=== PATIENT | female | born 1990 | race Hispanic/Latino ===

== ENCOUNTER 2021-04-03 15:23 | Emergency (ER) | payer SELFPAY ==
[2021-04-03 15:50] LABS: Urine Blood Negative (Negative); Urine Glucose Negative (Negative); Urine Protein Negative (Negative); Urine Specific Gravity 1.025 (1.005-1.030)
[2021-04-03 16:27] LABS: Absolute Lymphocytes (CBC) 2.3 K/uL (0.7-4.9); Basophils % 0.6 % (0-1.3); Hematocrit 39.5 % (36.0-45.0); Lymphocytes % 30.2 % (15.3-44.8); MPV 7.7 fL (7.6-11.3); RBC Red Blood Cell Count 4.32 M/uL (3.86-4.86)
[2021-04-03 16:32] LABS: Albumin 3.8 g/dL (3.4-5.0); Bilirubin Direct 0.1 mg/dL (0-0.2); Bilirubin Total 0.4 mg/dL (0.2-1.0); Protein, Total 7.1 g/dL (6.4-8.2)
[2021-04-03] MEDS ORDERED: ONDANSETRON 4 MG/2 ML VIAL ONE (16:42)
[2021-04-03] MEDS ORDERED: MORPHINE 4 MG/ML SYR ONE (16:42)
[2021-04-03] MEDS ORDERED: NA CHLORIDE 0.9% 1,000 ML ONE (16:43)
[2021-04-03 17:32] LABS: Urine Specific Gravity/Preg 1.025 (1.005-1.030)
--- NOTE | 2021-04-03 17:43 | RAD REPORT ---
EXAM DESCRIPTION: CT - Abdomen Pelvis W Contrast - 04/03/2021 5:21 pm CLINICAL HISTORY: ABD PAIN COMPARISON: CT ABD PELVIS W CONTRAST dated 07/15/2015 TECHNIQUE: Biphasic, helical CT imaging of the abdomen and pelvis was performed following 100 ml non -ionic IV contrast. No oral contrast administered. All CT scans are performed using dose optimization technique as appropriate and may include automated exposure control or mA/KV adjustment according to patient size. FINDINGS: No suspicious findings in the lung bases. The liver, spleen, and pancreas show no suspicious findings. Cholecystectomy clips are present. No ab normal biliary tree dilatation. Symmetric renal function is seen with no hydronephrosis or suspicious renal mass. No pyelonephritis o r acute parenchymal process. No bladder abnormalities. No adrenal abnormalities. Uterus and ovaries s how no suspicious findings. Food and fluid fill but do not dilate the stomach. No gastric outlet obstruction or acute gastric fin ding suspected. No dilated bowel loops or bowel wall thickening. No appendicitis findings. No acute G I process is identifiable. No free air, free fluid or inflammatory stranding. No hernia, mass or bul ky lymphadenopathy. There is extensive stranding in the subcutaneous fatty tissues in the bilateral g luteal region with numerous small areas of soft tissue nodularity. 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 This needs correlation with history. No suspicious bony findings. IMPRESSION: Contrast enhanced CT abdomen and pelvis showing no acute or emergent finding. Nonacute findings detailed in the body of the report.
[2021-04-03] MEDS ORDERED: KETOROLAC 30 MG/ML INJ ONE (18:02)
--- NOTE | 2021-04-03 18:46 | ER ---
Nurse's Notes [facility] Name: Nelda Beckett Age: 30 yrs Sex: Female : 1990 Arrival Date: 04/03/2021 Time: 15:25 Bed 18 Private MD: Diagnosis: Abdominal tenderness;Pelvic and perineal pain; state, incidental;Diarrhea, unspecified Presentation: 04/03 15:35 Chief complaint: Patient states: RLQ abdominal pain with diarrhea since yesterday, jl7 radiates to LLQ and pelvis. Coronavirus screen: At this time, the client does not indicate any symptoms associated with coronavirus-19. Ebola Screen: No symptoms or risks identified at this time. Initial Sepsis Screen: Does the patient meet any 2 criteria? No. Patient's initial sepsis screen is negative. Does the patient have a suspected source of infection? No. Patient's initial sepsis screen is negative. Risk Assessment: Do you want to hurt yourself or someone else? Patient reports no desire to harm self or others. Onset of symptoms was April 02, 2021. 15:35 Method Of Arrival: Ambulatory [facility] 15:35 Acuity: HARVEY 3 jl7 Triage Assessment: 15:38 General: Appears in no apparent distress. uncomfortable, Behavior is calm, cooperative, jl7 appropriate for age. Pain: Complains of pain in right lower quadrant Pain radiates to left lower quadrant and pelvis Pain currently is 9 out of 10 on a pain scale. GI: Reports diarrhea. 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 - Social history:: Smoking status: Patient denies any tobacco usage or history of. - Family history:: not pertinent. Screenin:16 Abuse screen: Denies threats or abuse. Denies injuries from another. Nutritional bs2 screening: No deficits noted. Tuberculosis screening: No symptoms or risk factors identified. Fall Risk None identified. Assessment: 16:20 General: Appears in no apparent distress. comfortable, Behavior is calm, cooperative, bs2 appropriate for age. Pain: Complains of pain in RLQ. Neuro: No deficits noted. Cardiovascular: No deficits noted. Respiratory: No deficits noted. GI: Bowel sounds present X 4 quads. Abd is non tender. : No deficits noted. EENT: No deficits noted. Derm: No deficits noted. Musculoskeletal: No deficits noted. 19:15 Reassessment: MD Gottlieb at bedside to discuss all results with pt. bs2 Vital Signs: 15:35 BP 118 / 82; Pulse 85; Resp 17; Temp 98.7; Pulse Ox 100% on R/A; Weight 71.21 kg; jl7 Height 5 ft. 0 in. (152.40 cm); Pain 9/10; 15:35 Body Mass Index 30.66 (71.21 kg, 152.40 cm) jl7 ED Course: 15:25 Patient arrived in ED. as 15:38 Triage completed. jl7 15:38 Arm band placed on right wrist. jl7 15:44 Chuyita Tierney RN is Primary Nurse. tr6 15:52 Wily Gottlieb MD is Attending Physician. jf 16:11 Inserted saline lock: 18 gauge in right antecubital area, using aseptic technique. tr6 Blood collected. 17:21 CT Abd/Pelvis - IV Contrast Only In Process Unspecified. EDMS 18:44 Roberto Linda MD is Referral Physician. jf 18:54 US Transvaginal Ob In Process Unspecified. EDMS 19:11 IV discontinued, intact, bleeding controlled, No redness/swelling at site. Pressure bs2 dressing applied. 19:16 Patient has correct armband on for positive identification. bs2 19:16 No provider procedures requiring assistance completed. bs2 Administered Medications: 16:20 Drug: NS 0.9% 1000 ml Route: IV; Rate: 1 bolus; Site: right antecubital; tr6 17:09 Follow up: Response: No adverse reaction; IV Status: Completed infusion; IV converted tr6 to saline lock; IV Intake: 1000ml 18:37 Follow up: Response: No adverse reaction; IV Status: Completed infusion; IV converted tr6 to saline lock; IV Intake: 1000ml 16:20 Not Given (Patient Refused; pt states morphine makes her depressed and would not like tr6 it at this timee): morphine 2 mg IVP once; (PAIN>8) RASS on ADMN: Combtv4, Very Agttd3, Agttd2, Rstlss1, AlertClm0, Drwsy-1, LtSdtn-2, ModSdtn-3, DpSdtn-4, UnArsble-5 x2 17:09 Not Given (Patient Refused): Zofran (Ondansetron) 4 mg IVP once; over 2 minutes tr6 17:49 Not Given (Duplicate Order): Ketorolac 30 mg IVP once jf Intake: 17:09 IV: 1000ml; Total: 1000ml. tr6 18:37 IV: 1000ml; Total: 2000ml. tr6 Outcome: 18:45 Discharge ordered by . jf 19:15 Discharged to home ambulatory. bs2 19:15 Condition: good 19:15 Discharge instructions given to patient, Instructed on discharge instructions, follow up and referral plans. medication usage, safety practices, Demonstrated understanding of instructions, follow-up care, medications. 19:16 Patient left the ED. bs2 Signatures: Dispatcher [employer] EDMS Wily Gottlieb MD MD cha Martinez, Amelia as Yareli Johns RN RN iw Brianda Barajas RN RN [email or web address] Chuyita Tierney RN RN trKeren Anderson RN RN bs2 Corrections: (The following items were deleted from the chart) 15:48 15:38 PSHx: None; gavino gerber
--- NOTE | 2021-04-03 18:46 | EDPHYS ---
Physician Documentation [facility] Name: Nelda Beckett Age: 30 yrs Sex: Female : 1990 Arrival Date: 04/03/2021 Time: 15:25 Bed 18 Private MD: KESHA Physician Wily Gottlieb HPI: 04/03 17:09 This 30 yrs old Female presents to ER via Ambulatory with complaints of jf Abdominal Pain, Pelvic Pain. 17:09 The patient presents with abdominal pain in the lower abdomen. Onset: The jf symptoms/episode began/occurred yesterday. The symptoms do not radiate. Associated signs and symptoms: none. The symptoms are described as crampy, sharp. Modifying factors: The symptoms are alleviated by nothing, the symptoms are aggravated by movement. Severity of pain: At its worst the pain was mild moderate in the emergency department the pain is unchanged. The patient has not experienced similar symptoms in the past. 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 - Social history:: Smoking status: Patient denies any tobacco usage or history of. - Family history:: not pertinent. ROS: 17:09 Constitutional: Negative for fever, chills, and weight loss, Eyes: Negative for injury, jf pain, redness, and discharge, ENT: Negative for injury, pain, and discharge, Neck: Negative for injury, pain, and swelling, Cardiovascular: Negative for chest pain, palpitations, and edema, Respiratory: Negative for shortness of breath, cough, wheezing, and pleuritic chest pain, Back: Negative for injury and pain, : Negative for injury, bleeding, discharge, and swelling, MS/Extremity: Negative for injury and deformity, Skin: Negative for injury, rash, and discoloration, Neuro: Negative for headache, weakness, numbness, tingling, and seizure, Psych: Negative for depression, anxiety, suicide ideation, homicidal ideation, and hallucinations, Allergy/Immunology: Negative for hives, rash, and allergies, Endocrine: Negative for neck swelling, polydipsia, polyuria, polyphagia, and marked weight changes, Hematologic/Lymphatic: Negative for swollen nodes, abnormal bleeding, and unusual bruising. 17:09 Abdomen/GI: Positive for abdominal pain, of the right lower quadrant. Exam: 17:09 Constitutional: This is a well developed, well nourished patient who is awake, alert, jf and in no acute distress. Head/Face: Normocephalic, atraumatic. Eyes: Pupils equal round and reactive to light, extra-ocular motions intact. Lids and lashes normal. Conjunctiva and sclera are non-icteric and not injected. Cornea within normal limits. Periorbital areas with no swelling, redness, or edema. ENT: Nares patent. No nasal discharge, no septal abnormalities noted. Tympanic membranes are normal and external auditory canals are clear. Oropharynx with no redness, swelling, or masses, exudates, or evidence of obstruction, uvula midline. Mucous membranes moist. Neck: Trachea midline, no thyromegaly or masses palpated, and no cervical lymphadenopathy. Supple, full range of motion without nuchal rigidity, or vertebral point tenderness. No Meningismus. Chest/axilla: Normal chest wall appearance and motion. Nontender with no deformity. No lesions are appreciated. Cardiovascular: Regular rate and rhythm with a normal S1 and S2. No gallops, murmurs, or rubs. Normal PMI, no JVD. No pulse deficits. Respiratory: Lungs have equal breath sounds bilaterally, clear to auscultation and percussion. No rales, rhonchi or wheezes noted. No increased work of breathing, no retractions or nasal flaring. Back: No spinal tenderness. No costovertebral tenderness. Full range of motion. Female : Normal external genitalia. Skin: Warm, dry with normal turgor. Normal color with no rashes, no lesions, and no evidence of cellulitis. MS/ Extremity: Pulses equal, no cyanosis. Neurovascular intact. Full, normal range of motion. Neuro: Awake and alert, GCS 15, oriented to person, place, time, and situation. Cranial nerves II-XII grossly intact. Motor strength 5/5 in all extremities. Sensory grossly intact. Cerebellar exam normal. Normal gait. Psych: Awake, alert, with orientation to person, place and time. Behavior, mood, and affect are within normal limits. 17:09 Abdomen/GI: Inspection: abdomen appears normal, Bowel sounds: normal, Palpation: mild abdominal tenderness, in the right lower quadrant, Liver: no appreciated palpable abnormalities, Hernia: not appreciated. Vital Signs: 15:35 BP 118 / 82; Pulse 85; Resp 17; Temp 98.7; Pulse Ox 100% on R/A; Weight 71.21 kg; jl7 Height 5 ft. 0 in. (152.40 cm); Pain 9/10; 15:35 Body Mass Index 30.66 (71.21 kg, 152.40 cm) jl7 MDM: 15:53 Patient medically screened. jf 17:12 Differential diagnosis: cholecystitis, Cholelithiasis, non-specific abd pain, Ovarian jf Torsion, pancreatitis, Pyelonephritis, Ureterolithiasis, urinary tract infection. Data reviewed: vital signs, nurses notes, lab test result(s), radiologic studies, CT scan. Data interpreted: teletypesetter monitor: rate is 85 beats/min, rhythm is regular, Pulse oximetry: on room air is 100 %. Counseling: I had a detailed discussion with the patient and/or guardian regarding: the historical points, exam findings, and any diagnostic results supporting the discharge/admit diagnosis, lab results, radiology results. 18:47 ED course: UA , UPT NEGATIVE, SG 1.020, REPEAT POSITIVE AFTER CT, QUANT 40. jf 04/03 15:50 Order name: Urine Dipstick-Ancillary; Complete Time: 15:53 EDMS 04/03 15:52 Order name: Urine --Ancillary (enter results); Complete Time: 17:49 em1 04/03 15:53 Order name: Basic Metabolic Panel; Complete Time: 16:58 jf 04/03 15:53 Order name: CBC with Diff; Complete Time: 16:58 jf 04/03 15:53 Order name: Hepatic Function; Complete Time: 16:58 jf 04/03 15:53 Order name: Lipase; Complete Time: 16:58 jf 04/03 15:53 Order name: CT Abd/Pelvis - IV Contrast Only; Complete Time: 17:49 jf 04/03 17:42 Order name: Test, Serum jf 04/03 17:43 Order name: Test, Serum em1 04/03 17:46 Order name: Quantitative Hcg; Complete Time: 18:42 em1 04/03 17:49 Order name: US Transvaginal Ob jf 04/03 15:53 Order name: IV Saline Lock; Complete Time: 16:11 jf 04/03 15:53 Order name: Labs collected and sent; Complete Time: 16:11 jf Administered Medications: 16:20 Drug: NS 0.9% 1000 ml Route: IV; Rate: 1 bolus; Site: right antecubital; tr6 17:09 Follow up: Response: No adverse reaction; IV Status: Completed infusion; IV converted tr6 to saline lock; IV Intake: 1000ml 18:37 Follow up: Response: No adverse reaction; IV Status: Completed infusion; IV converted tr6 to saline lock; IV Intake: 1000ml 16:20 Not Given (Patient Refused; pt states morphine makes her depressed and would not like tr6 it at this timee): morphine 2 mg IVP once; (PAIN>8) RASS on ADMN: Combtv4, Very Agttd3, Agttd2, Rstlss1, AlertClm0, Drwsy-1, LtSdtn-2, ModSdtn-3, DpSdtn-4, UnArsble-5 x2 17:09 Not Given (Patient Refused): Zofran (Ondansetron) 4 mg IVP once; over 2 minutes tr6 17:49 Not Given (Duplicate Order): Ketorolac 30 mg IVP once jf Disposition Summary: 04/03/21 18:45 Discharge Ordered Location: Home jf Problem: new jf Symptoms: have improved jf Condition: Stable jf Diagnosis - Abdominal tenderness jf - Pelvic and perineal pain jf - state, incidental jf - Diarrhea, unspecified jf Followup: jf - With: Private Physician - When: 2 - 3 days - Reason: Recheck today's complaints, Continuance of care, Re-evaluation by your physician Followup: jf - With: - When: 2 - 3 days - Reason: Recheck today's complaints, Re-evaluation by your physician Discharge Instructions: - Discharge Summary Sheet jf - Abdominal Pain, Adult jf - Care jf - Abdominal Pain During jf - Diarrhea, Adult jf - First Trimester of , [id number] jf - Abdominal Pain, Adult, [id number] jf - First Trimester of jf - Abdominal Pain During , [id number] jf Forms: - Medication Reconciliation Form jf - Thank You Letter jf - Antibiotic Education jf - Prescription Opioid Use jf Signatures: Dispatcher [employer] EDMS Wily Gottlieb MD MD cha Williams, Irene, RN RN iw Brianda Barajas RN RN jl7 Chuyita Tierney RN RN tr6 Corrections: (The following items were deleted from the chart) 15:48 15:38 PSHx: None; gavino gerber 18:22 17:44 Test Serum, Qualitat ordered. EDNC EDNC
--- NOTE | 2021-04-03 19:33 | RAD REPORT ---
EXAM DESCRIPTION: US - Transvaginal OB - 04/03/2021 6:54 pm CLINICAL HISTORY: ABD CRAMPING, COMPARISON: OBSTETRICAL COMPLETE dated 07/06/2014 FINDINGS: Tri laminar endometrial stripe is present with no intrauterine gestational sac or sac remn ant. No hematoma or other intrauterine abnormality seen. No myometrial mass. A 10 millimeter nabothia n cyst is present in the cervix. Normal size right ovary is seen with normal blood flow within the ovarian stroma. No right adnexal ma ss. Left ovary was not visualized, obscured by bowel, with no left adnexal mass seen. No blood or fluid in the cul de sac. IMPRESSION: No intrauterine gestational sac or intrauterine abnormality. No adnexal abnormality seen to suspect ectopic . Follow-up sonography can be performed if serial beta HCG values indicate ongoing .
[2021-04-03 19:39] VITALS: BP 118/82; TEMP 98.7; O2SAT 100
== END 2021-04-03 19:16 | disposition home or self-care (01) ==
LOC: ER 15:23
DX: R10.2 Pelvic and perineal pain (principal); Z33.1 Pregnant state, incidental; R19.7 Diarrhea, unspecified
CPT/HCPCS: 36415; 74177; 76817; 80048; 80076; 81003; 81025; 83690; 84702; 84703; 85025; 96360; 99284; J2405; J7030; Q9967

== ENCOUNTER 2023-06-08 21:49 | Emergency (ER) | payer SELFPAY ==
[2023-06-08] MEDS ORDERED: HYDROCODONE/APAP 5/325 MG TAB ONE (22:28)
--- NOTE | 2023-06-08 23:18 | EDPHYS ---
Physician Documentation [facility] Name: Nelda Beckett Age: 33 yrs Sex: Female : 1990 Arrival Date: 06/08/2023 Time: 21:49 Bed 12 Private MD: ED Physician Torito Benoit HPI: 06/08 22:29 This 33 yrs old Female presents to ER via Ambulatory with complaints of Fall kb Injury, Wrist Pain. 22:29 Pt is a 33 year old female who presents for wrist pain after tripping and falling onto kb left arm. States she stepped on a skateboard that she didn't know what on the floor which caused her to fall. Denies loc. Denies any other injury. Historical: - Allergies: 22:00 No Known Allergies; cm10 - Home Meds: 22:00 None [Active]; cm10 - PMHx: 22:00 None; cm10 - PSHx: 22:00 Cholecystectomy; cm10 - Immunization history:: Adult Immunizations unknown. - Social history:: Smoking status: Patient reports the use of cigarette tobacco products. ROS: 22:29 Constitutional: Negative for fever, chills, and weight loss, kb 22:29 MS/extremity: Positive for injury or acute deformity, decreased range of motion, deformity, pain, tenderness, of the left wrist, 22:29 All other systems are negative, Exam: 22:29 Constitutional: This is a well developed, well nourished patient who is awake, alert, kb and in no acute distress. Head/Face: Normocephalic, atraumatic. ENT: Moist Mucous membranes Cardiovascular: Regular rate Respiratory: Respirations even and unlabored. No increased work of breathing. Talking in full sentences Skin: Warm, dry with normal turgor. Normal color. Neuro: Awake and alert, GCS 15, oriented to person, place, time, and situation. Moves all extremities. Normal gait. 22:29 Musculoskeletal/extremity: Extremities: grossly normal except: noted in the left wrist: decreased ROM, deformity, pain, tenderness, ROM: limited active range of motion due to pain, Pulses: Sensation intact. Vital Signs: 21:58 BP 117 / 84; Pulse 92; Resp 18; Temp 98.1(TE); Pulse Ox 100% ; Weight 74.84 kg; Height cm10 5 ft. 0 in. ; Pain 10/10; 23:00 BP 114 / 78; Pulse 83; Resp 16; Pulse Ox 97% on R/A; jb4 21:58 Body Mass Index 32.22 (74.84 kg, 152.4 cm) cm10 21:58 Pain Scale: Adult cm10 MDM: 21:55 Patient medically screened. kb 22:30 Differential diagnosis: contusion, fracture, sprain, strain. Data reviewed: vital kb signs, nurses notes. 23:17 Counseling: I had a detailed discussion with the patient and/or guardian regarding the kb historical points, exam findings, and any diagnostic results supporting the discharge/admit diagnosis, radiology results, the need for outpatient follow up, a orthopedic surgeon, to return to the emergency department if symptoms worsen or persist or if there are any questions or concerns that arise at home. 23:19 Independent interpretation of the following test(s) in the Emergency Department X-Ray: kb My interpretation is negative for fracture. 06/08 22:03 Order name: Forearm Left XRAY kb 06/08 23:18 Order name: Wrist Splint; Complete Time: 23:46 kb Administered Medications: 22:06 Not Given (Other Intervention Used): norco10 mg-325 mg 1 tabs PO once kb 22:15 Drug: HYDROcodone-acetaminophen PO 5 mg-325 mg 2 tabs PO once Route: PO; jb4 23:48 Follow up: Response: No adverse reaction; Marked relief of symptoms; Pain is decreased jb4 Disposition: 06/09 20:03 Co-signature as Attending Physician, Torito Benoit MD I agree with the assessment sp4 and plan of care. I reviewed the patient's care provided by the Advanced Practice Provider and agree with the diagnosis and treatment plan. Disposition Summary: 06/08/23 23:18 Discharge Ordered Notes: Location: Home kb Condition: Stable kb Diagnosis - Sprain of unspecified part of left wrist and hand kb Followup: kb - With: Emergency Department - When: As needed - Reason: Worsening of condition Followup: kb - With: Private Physician - When: 2 - 3 days - Reason: Recheck today's complaints, Continuance of care, Re-evaluation by your physician Discharge Instructions: - Discharge Summary Sheet kb - Wrist Pain, Adult, [id number] kb - Wrist Sprain, Adult kb Forms: - Medication Reconciliation Form kb - Thank You Letter kb - Antibiotic Education kb - Prescription Opioid Use kb - Patient Portal Instructions kb - Leadership Thank You Letter kb Prescriptions: - Diclofenac Sodium 75 mg Oral tablet, delayed release (enteric coated) - take 1 tablet ORAL route 2 times per day As needed; 30 tablet; Refills: 0, kb Product Selection Permitted Signatures: Dispatcher [employer] EDME Eri Gamble, CL DEL RIO-Praveen Arriaza, RN RN jb4 Torito Benoit MD MD sp4 Daily Frost RN RN cm10 Corrections: (The following items were deleted from the chart) 06/08 22:30 22:29 Pt is a 33 year old female who presents for wrist pain after tripping and falling kb onto left arm. States she stepped on a skateboard that she didn't know what on the floor which caused her to fall. Denies loc. . kb
--- NOTE | 2023-06-08 23:18 | ER ---
Nurse's Notes [facility] Name: Nelda Beckett Age: 33 yrs Sex: Female : 1990 Arrival Date: 06/08/2023 Time: 21:49 Bed 12 Private MD: Diagnosis: Sprain of unspecified part of left wrist and hand Presentation: 06/08 21:56 Chief complaint: Patient states: Pt fell onto left wrist/forearm while carrying a cm10 child. +deformity +sensation. Care prior to arrival: None. Mechanism of Injury: Fall. 21:56 Acuity: HARVEY 3 cm10 21:56 Method Of Arrival: Ambulatory cm10 21:58 Coronavirus screen: Vaccine status: Patient reports being unvaccinated. At this time, cm10 the client does not indicate any symptoms associated with coronavirus-19. Ebola Screen: Patient negative for fever greater than or equal to 101.5 degrees Fahrenheit, and additional compatible Ebola Virus Disease symptoms Patient denies exposure to infectious person. Patient denies travel to an Ebola-affected area in the 21 days before illness onset. No symptoms or risks identified at this time. Initial Sepsis Screen: Does the patient meet any 2 criteria? No. Patient's initial sepsis screen is negative. Does the patient have a suspected source of infection? No. Patient's initial sepsis screen is negative. Risk Assessment: Do you want to hurt yourself or someone else? Patient reports no desire to harm self or others. Onset of symptoms was June 08, 2023. Historical: - Allergies: 22:00 No Known Allergies; cm10 - Home Meds: 22:00 None [Active]; cm10 - PMHx: 22:00 None; cm10 - PSHx: 22:00 Cholecystectomy; cm10 - Immunization history:: Adult Immunizations unknown. - Social history:: Smoking status: Patient reports the use of cigarette tobacco products. Screenin:04 [facility] ED Fall Risk Assessment (Adult) History of falling in the last 3 months, jb4 including since admission No falls in past 3 months (0 pts) Confusion or Disorientation No (0 pts) Score/Fall Risk Level 0 - 2 = Low Risk Oriented to surroundings, Maintained a safe environment. Abuse screen: Denies threats or abuse. Nutritional screening: No deficits noted. Tuberculosis screening: No symptoms or risk factors identified. Assessment: 22:00 General: Appears in no apparent distress. uncomfortable, Behavior is calm, cooperative, jb4 appropriate for age. Pain: Complains of pain in Left wrist Pain does not radiate. Pain currently is 10 out of 10 on a pain scale. Neuro: Level of Consciousness is awake, alert, obeys commands, Oriented to person, place, time, situation. Cardiovascular: Patient's skin is warm and dry. Respiratory: Airway is patent Respiratory effort is even, unlabored, Respiratory pattern is regular, symmetrical. GI: No signs and/or symptoms were reported involving the gastrointestinal system. : No signs and/or symptoms were reported regarding the genitourinary system. EENT: No signs and/or symptoms were reported regarding the EENT system. Derm: Skin is intact, Skin is pink, warm \T\ dry. Musculoskeletal: Circulation, motion, and sensation intact. Range of motion: intact in all extremities, Bony deformity noted of Left wrist. 23:00 Reassessment: Patient appears in no apparent distress at this time. Patient and/or jb4 family updated on plan of care and expected duration. Pain level reassessed. Patient is alert, oriented x 3, equal unlabored respirations, skin warm/dry/pink. Vital Signs: 21:58 BP 117 / 84; Pulse 92; Resp 18; Temp 98.1(TE); Pulse Ox 100% ; Weight 74.84 kg; Height cm10 5 ft. 0 in. ; Pain 10/10; 23:00 BP 114 / 78; Pulse 83; Resp 16; Pulse Ox 97% on R/A; jb4 21:58 Body Mass Index 32.22 (74.84 kg, 152.4 cm) cm10 21:58 Pain Scale: Adult cm10 ED Course: 21:53 Patient arrived in ED. gm2 21:55 Eri Gamble FNP-C [facility] kb 21:55 Torito Benoit MD is Attending Physician. kb 21:58 Triage completed. cm10 22:01 Arm band placed on Patient placed in an exam room, on a stretcher. cm10 22:04 Patient has correct armband on for positive identification. Bed in low position. Call jb4 light in reach. Side rails up X 1. 22:55 Forearm Left XRAY In Process Unspecified. EDMS 23:49 No provider procedures requiring assistance completed. Patient did not have IV access jb4 during this emergency room visit. Administered Medications: 22:06 Not Given (Other Intervention Used): norco10 mg-325 mg 1 tabs PO once kb 22:15 Drug: HYDROcodone-acetaminophen PO 5 mg-325 mg 2 tabs PO once Route: PO; jb4 23:48 Follow up: Response: No adverse reaction; Marked relief of symptoms; Pain is decreased jb4 Outcome: 23:18 Discharge ordered by MD. hall 23:49 Discharged to home ambulatory, with family, jb4 23:49 Condition: stable 23:49 Discharge instructions given to patient, Instructed on discharge instructions, follow up and referral plans. no drinking with medication, medication usage, Demonstrated understanding of instructions, follow-up care, medications, Prescriptions given X 1, 23:49 Patient left the ED. jb4 Signatures: Dispatcher [employer] EDMS Eri Gamble, CL DEL RIO-Praveen Arriaza RN RN jb4 Daily Frost RN RN cm10 Heather Boyce 2
[2023-06-09 01:44] VITALS: TEMP 98.1
[2023-06-09 01:47] VITALS: BP 114/78; O2SAT 97
--- NOTE | 2023-06-09 12:29 | RAD REPORT ---
EXAM DESCRIPTION: RAD - Forearm Left - 06/08/2023 10:53 pm CLINICAL HISTORY: 33 years Female, PAIN COMPARISON: None. FINDINGS: 2 views of the left forearm. Normal osseous mineralization and alignment. No acute fractur e or dislocation. Soft tissues are unremarkable. IMPRESSION: No acute radiographic abnormality. 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 The interpreting r adiologist is fully responsible for the content of the report.
== END 2023-06-08 23:49 | disposition home or self-care (01) ==
LOC: ER 21:49
DX: S63.92XA Sprain of unspecified part of left wrist and hand, initial encounter (principal); Z72.0 Tobacco use

== ENCOUNTER → 2023-09-07 | Emergency (ER) | payer SELFPAY ==
[~2023-09-07] MED LIST: ACETAMINOPHEN 500 MG TAB ONE; ONDANSETRON 4 MG (ODT) TAB ONE
[2023-09-07 10:26] LABS: Absolute Eosinophils 0.1 K/uL (0-0.5); Absolute Lymphocytes (CBC) 0.6 K/uL (0.7-4.9); Basophils % 0.2 % (0-1.3); Eosinophils % 0.5 % (0-4.4); Hematocrit 44.9 % (36.0-45.0); Hemoglobin 15.2 g/dL (12.0-15.0); Lymphocytes % 6.1 % (15.3-44.8); MCV 92.7 fL (80-100); MPV 7.5 fL (7.6-11.3); Platelets 369 thou/uL (152-406); RBC Red Blood Cell Count 4.84 M/uL (3.86-4.86)
[2023-09-07 10:43] LABS: Albumin 4.1 g/dL (3.4-5.0); Anion Gap 6.9 mEq/L (5.0-15.0); Bilirubin Total 1.4 mg/dL (0.2-1.0); Globulin 4.1 g/dL (2.3-3.5); Potassium 3.9 mEq/L (3.5-5.1); Protein, Total 8.2 g/dL (6.4-8.2)
[2023-09-07 10:57] LABS: Platelet Estimate ADEQ; White Blood Cell Scan OK (OK)
[2023-09-07 10:58] LABS: Blood Morphology Comment NOT SEEN (NOT SEEN)
--- NOTE | 2023-09-07 11:40 | EDPHYS ---
Physician Documentation [facility] Name: Nelda Beckett Age: 33 yrs Sex: Female : 1990 Arrival Date: 09/07/2023 Time: 09:26 Bed 3 Private MD: ED Physician Finn Townsend HPI: 09/06 10:04 This 33 yrs old Female presents to ER via Ambulatory with complaints of rt Vomiting/Diarrhea. 10:05 Patient presents to the ED with nausea, vomiting, diarrhea starting last night. Some rt mild abdominal pain. Patient is positive sick contacts with family members. Denies other acute complaints at this time, symptoms are moderate in severity, no other aggravating relieving factors. Patient initially denied having blood in the vomit, subsequently though she states that she did have some blood in the vomit after retching. Denies blood in stool. 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 - Social history:: Smoking status: Patient denies any tobacco usage or history of. - Family history:: not pertinent. ROS: 10:05 Constitutional: Negative for fever, chills, and weight loss, Cardiovascular: Negative rt for chest pain, palpitations, and edema, Respiratory: Negative for shortness of breath, cough, wheezing, and pleuritic chest pain, MS/Extremity: Negative for injury and deformity, Skin: Negative for injury, rash, and discoloration, 10:05 Abdomen/GI: Positive for nausea, vomiting, and diarrhea, Exam: 10:05 Constitutional: ' Head/Face: Normocephalic, atraumatic. Chest/axilla: Normal chest rt wall appearance and motion. Nontender with no deformity. No lesions are appreciated. Cardiovascular: Regular rate and rhythm with a normal S1 and S2. No gallops, murmurs, or rubs. Normal PMI, no JVD. No pulse deficits. Respiratory: Lungs have equal breath sounds bilaterally, clear to auscultation and percussion. No rales, rhonchi or wheezes noted. No increased work of breathing, no retractions or nasal flaring. Skin: Warm, dry with normal turgor. Normal color with no rashes, no lesions, and no evidence of cellulitis. MS/ Extremity: Pulses equal, no cyanosis. Neurovascular intact. Full, normal range of motion. Neuro: Awake and alert, GCS 15, oriented to person, place, time, and situation. Cranial nerves II-XII grossly intact. Motor strength 5/5 in all extremities. Sensory grossly intact. Cerebellar exam normal. Normal gait. 10:05 Abdomen/GI: Minimal epigastric tenderness without rebound, guarding, distention, Vital Signs: 09:53 BP 122 / 91; Pulse 99; Resp 18; Temp 98.2; Pulse Ox 100% on R/A; iw 11:26 Pain 7/10; nj1 11:52 BP 101 / 74; Pulse 85; Resp 16; Pulse Ox 100% on R/A; db 11:26 Pain Scale: Adult nj1 MDM: 09:57 Patient medically screened. rt 13:05 Differential diagnosis: Viral syndrome, gastroenteritis, Yamileth-Perdomo tear. Data rt reviewed: vital signs, nurses notes, lab test result(s). I considered the following discharge prescriptions or medication management in the emergency department Medications were administered in the Emergency Department. See MAR. Test considered but Not performed: CT: Benign abdominal examination, symptoms significantly improving, low suspicion for acute surgical pathology, CT scan not indicated. Counseling: I had a detailed discussion with the patient and/or guardian regarding the historical points, exam findings, and any diagnostic results supporting the discharge/admit diagnosis, lab results, the need for outpatient follow up. Response to treatment: the patient's symptoms have markedly improved after treatment. 09/06 10:26 Order name: CBC with Automated Diff; Complete Time: 11: EDMS 09/06 10:43 Order name: Comprehensive Metabolic Panel; Complete Time: 11: EDMS 09/06 10:43 Order name: Lipase; Complete Time: 11: EDMS 09/06 10:46 Order name: Test Serum, Qualitat; Complete Time: 11:10 EDMS 09/06 10:58 Order name: CBC Smear Scan; Complete Time: 11: EDMS 09/06 11:23 Order name: PO challenge; Complete Time: 12:04 rt Administered Medications: 10:12 Drug: Ondansetron PO 4 mg PO once Route: PO; nj1 11:26 Follow up: Response: No adverse reaction; Nausea is decreased nj1 10:12 Drug: Acetaminophen PO 1000 mg PO once Route: PO; nj1 11:26 Follow up: Pain 01/04 Adult; Response: No adverse reaction; Pain is decreased nj1 Disposition Summary: 09/07/23 11:39 Discharge Ordered Notes: Location: Home rt Problem: new rt Symptoms: have improved rt Condition: Stable rt Diagnosis - Nausea with vomiting, unspecified rt - Diarrhea, unspecified rt Followup: rt - With: Private Physician - When: 2 - 3 days - Reason: Discharge Instructions: - Discharge Summary Sheet rt - Diarrhea, Adult rt - Nausea and Vomiting, Adult rt Forms: - Medication Reconciliation Form rt - Thank You Letter rt - Antibiotic Education rt - Prescription Opioid Use rt - Patient Portal Instructions rt - Leadership Thank You Letter rt Prescriptions: - ondansetron 4 mg Oral Tablet,disintegrating - take 1 tablet ORAL route every 6 hours; 15 tablet; Refills: 0, Product rt Selection Permitted Signatures: Dispatcher [employer] Yareli Frank, RN RN iw Finn Townsend MD MD rt Carole Ann RN RN nj1
--- NOTE | 2023-09-07 11:40 | ER ---
Nurse's Notes [facility] Name: Nelda Beckett Age: 33 yrs Sex: Female : 1990 Arrival Date: 09/07/2023 Time: 09:26 Bed 3 Private MD: Diagnosis: Nausea with vomiting, unspecified;Diarrhea, unspecified Presentation: 09/06 09:53 Chief complaint: Patient states: her kids are sick and she has been vomiting and having iw diarrhea. Coronavirus screen: Client presents with at least one sign or symptom that may indicate coronavirus-19. Ebola Screen: Patient negative for fever greater than or equal to 101.5 degrees Fahrenheit, and additional compatible Ebola Virus Disease symptoms Patient denies exposure to infectious person. Patient denies travel to an Ebola-affected area in the 21 days before illness onset. No symptoms or risks identified at this time. 09:53 Method Of Arrival: Ambulatory iw 09:53 Acuity: HARVEY 3 iw 09:54 Initial Sepsis Screen: Does the patient meet any 2 criteria? No. Patient's initial iw sepsis screen is negative. Does the patient have a suspected source of infection? No. Patient's initial sepsis screen is negative. Risk Assessment: Do you want to hurt yourself or someone else? Patient reports no desire to harm self or others. 10:21 Onset of symptoms was September 06, 2023. 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 - Social history:: Smoking status: Patient denies any tobacco usage or history of. - Family history:: not pertinent. Screenin:21 [facility] ED Fall Risk Assessment (Adult) Score/Fall Risk Level 0 - 2 = Low Risk nj Oriented to surroundings, Maintained a safe environment, Hourly rounding (assess needs \T\ fall precautionary measures) done. Abuse screen: Denies threats or abuse. Denies injuries from another. Nutritional screening: No deficits noted. Tuberculosis screening: No symptoms or risk factors identified. Assessment: 10:12 General: Appears in no apparent distress. uncomfortable, Behavior is calm, cooperative, nj1 appropriate for age. 10:12 Pain: Complains of pain in abdomen Pain currently is 10 out of 10 on a pain scale. nj1 Neuro: Level of Consciousness is awake, alert, obeys commands, Oriented to person, place, time, situation. Cardiovascular: Patient's skin is warm and dry. Respiratory: Airway is patent Respiratory effort is even, unlabored. GI: Reports lower abdominal pain, upper abdominal pain, diarrhea, nausea, vomiting. 11:26 Reassessment: Patient appears in no apparent distress at this time. Patient and/or nj1 family updated on plan of care and expected duration. Pain level reassessed. Patient is alert, oriented x 3, equal unlabored respirations, skin warm/dry/pink. Patient states symptoms have improved. 12:03 Reassessment: Patient appears in no apparent distress at this time. Patient and/or db family updated on plan of care and expected duration. Pain level reassessed. Patient is alert, oriented x 3, equal unlabored respirations, skin warm/dry/pink. PT TOLERATED PO CHALLENGE Patient states feeling better. Patient states symptoms have improved. Vital Signs: 09:53 BP 122 / 91; Pulse 99; Resp 18; Temp 98.2; Pulse Ox 100% on R/A; iw 11:26 Pain 7/10; nj1 11:52 BP 101 / 74; Pulse 85; Resp 16; Pulse Ox 100% on R/A; db 11:26 Pain Scale: Adult nj1 ED Course: 09:33 Patient arrived in ED. mg5 09:34 Finn Townsend MD is Attending Physician. rt 09:54 Triage completed. iw 09:54 Arm band placed on. iw 10:01 Maranda Lynch, PAUL is Primary Nurse. db 10:14 Inserted saline lock: 22 gauge in left antecubital area, using aseptic technique. Blood nj collected. 10:21 Patient has correct armband on for positive identification. Bed in low position. Call nj1 light in reach. Side rails up X 1. Provided Education on: call light, fall precautions. 12:03 Pulse ox on. NIBP on. Warm blanket given. db 12:03 No provider procedures requiring assistance completed. IV discontinued, intact, db bleeding controlled, No redness/swelling at site. Administered Medications: 10:12 Drug: Ondansetron PO 4 mg PO once Route: PO; nj1 11:26 Follow up: Response: No adverse reaction; Nausea is decreased nj1 10:12 Drug: Acetaminophen PO 1000 mg PO once Route: PO; nj1 11:26 Follow up: Pain 7/10 Adult; Response: No adverse reaction; Pain is decreased nj1 Medication: 12:03 VIS not applicable for this client. db Outcome: 11:39 Discharge ordered by MD. rt 12:03 Discharged to home ambulatory, db 12:03 Condition: stable 12:03 Discharge instructions given to patient, Instructed on discharge instructions, follow up and referral plans. Prescriptions given X 1, 12:04 Patient left the ED. db Signatures: Yareli Johns RN RN iw Maranda Lynch RN RN db Finn Townsend MD MD rt Carole Ann RN RN njNaa Roca mg5 Corrections: (The following items were deleted from the chart) 09:55 09:53 Pulse 99bpm; Resp 18bpm; Pulse Ox 100% RA; Temp 98.2F; iw iw 12:04 12:03 Reassessment: Patient appears in no apparent distress at this time. Patient db and/or family updated on plan of care and expected duration. Pain level reassessed. Patient is alert, oriented x 3, equal unlabored respirations, skin warm/dry/pink. Patient states feeling better. Patient states symptoms have improved. db
[2023-09-07 12:12] VITALS: BP 101/74; TEMP 98.2; O2SAT 100
== END ==
LOC: ER 09:26
DX: R11.2 Nausea with vomiting, unspecified (principal); R19.7 Diarrhea, unspecified
CPT/HCPCS: 36415; 80053; 83690; 84703; 85025; Q0162

== ENCOUNTER 2024-02-05 02:54 | Emergency (ER) | payer SELFPAY, OTHER ==
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
[2024-02-05 03:35] VITALS: BP 128/82; TEMP 98.5; O2SAT 100
== END 2024-02-05 03:16 | disposition home or self-care (01) ==
LOC: ER 02:54
DX: S87.82XA Crushing injury of left lower leg, initial encounter (principal); S87.81XA Crushing injury of right lower leg, initial encounter
CPT/HCPCS: 99283